=== PATIENT | female | born 1980 | race African-American/Black ===

== ENCOUNTER 2019-01-24 22:12 | Emergency (ER) | payer MEDICAID, OTHER ==
[~2019-01-24] VITALS: Ht 170.2 cm; Wt 98.9 kg
[~2019-01-24 22:12] MED LIST: ADALAT20 MG ORAL; CYCLOBENZAPRINE10 MG ORAL; IBUPROFEN600 MG ORAL
[2019-01-24 22:25] VITALS: BP 156/73
--- NOTE | 2019-01-24 22:25 | NUR ---
ED Nurse Note: Pt walked in to ER due to RT forearm redness, itching, swelling that started this morning and got worse throughout day. Patient denies allergic reaction or any insect bites. Has hx of HTN and is compliant with her medications. Alert and oriented x4, verbally responsive. No SOB. Breathing even and unlabored. Afebrile. VSS. at bedsdie.
--- NOTE | 2019-01-24 22:34 | Emergency Room Report ---
History of Present Illness General Chief Complaint: Skin Rash/Abscess Source: Patient Present Illness HPI Is a 38-year-old female with history of high blood pressure patient presents with chief complaint of a bite and infection to her right arm. She woke up this morning and noticed a small red area. It was itchy. She thought she may been bitten by something. She is been scratching it. Since this morning is been getting worse. Redness is spreading. No fever chills but no nausea no vomiting. No drainage. Allergies: Coded Allergies: No Known Allergies (Unverified , 10/30/15) Patient History Past Medical History: see triage record, old chart reviewed, HTN Past Surgical History: none Pertinent Family History: none Social History: Denies: smoking Last Menstrual Period: IUD Now: No Immunizations: other Reviewed Nursing Documentation: PMH: Agreed; PSxH: Agreed Nursing Documentation-PMH Hx Hypertension: Yes Review of Systems Eye: Denies: eye pain, blurred vision ENT: Denies: ear pain, nose congestion, throat swelling Respiratory: Denies: cough, shortness of breath Cardiovascular: Denies: chest pain, palpitations Gastrointestinal: Denies: abdominal pain, diarrhea, nausea, vomiting Musculoskeletal: Denies: back pain, joint pain Skin: Reports: rash Neurological: Denies: headache, numbness Endocrine: Denies: increased thirst, increased urine Hematologic/Lymphatic: Denies: easy bruising All Other Systems: negative except mentioned in HPI Physical Exam Vital Signs Date Time Temp Pulse Resp B/P (MAP) Pulse Ox O2 Delivery O2 Flow Rate FiO2 01/24/19 22:16 98.4 84 16 156/73 (100) 96 Room Air Vitals with high blood pressure Sp02 EP Interpretation: reviewed, normal General Appearance: well appearing, no apparent distress, alert Head: normocephalic, atraumatic Eyes: bilateral eye PERRL, bilateral eye EOMI ENT: hearing grossly normal, normal pharynx Neck: full range of motion, supple, no meningismus Respiratory: chest non-tender, lungs clear, normal breath sounds Cardiovascular #1: regular rate, rhythm, no murmur Gastrointestinal: normal bowel sounds, non tender, no mass, no organomegaly, no bruit, non-distended Musculoskeletal: back normal, gait/station normal, normal range of motion, other - Right forearm: There is an area of erythema on the proximal forearm near the elbow on the ventral aspect. Measures about 4 cm. No fluctuant. No crepitance. Psychiatric: mood/affect normal Medical Decision Making Diagnostic Impression: Primary Impression: Right forearm cellulitis ER Course Patient with cellulitis of the forearm. No evidence of necrotizing fasciitis or abscess. No septic joint. Will discharge home. Last Vital Signs Date Time Temp Pulse Resp B/P (MAP) Pulse Ox O2 Delivery O2 Flow Rate FiO2 01/24/19 22:16 98.4 84 16 156/73 (100) 96 Room Air Status: unchanged Disposition: HOME, SELF-CARE Condition: Stable Scripts Trimethoprim/Sulfamethoxazole 160/800* (BACTRIM DS TABLET*) 1 Each Tablet 1 TAB ORAL Q12H, #14 TAB 0 Refills Prov: Jax Lara MD 01/24/19 Mupirocin* (MUPIROCIN*) 22 Gm Oint...g. 1 APPLIC TOPIC THREE TIMES A DAY, #22 GM Prov: Jax Lara MD 01/24/19 Additional Instructions: Keep wound clean. Clean first with hydroperoxide and apply antibiotic ointment. Follow-up with your doctor in 7 days. Return if worse. Jax Lara MD Jan 24, 2019 22:34
[2019-01-24] MEDS ORDERED: MUPIROCIN22 GM TOPIC (22:38)
[2019-01-24] MEDS ORDERED: BACTRIM DS TAB1 EAC1 ORAL (22:38)
[2019-01-24 22:43] VITALS: BP 156/73
--- NOTE | 2019-01-24 22:43 | NUR ---
ED Nurse Note: Pt cleared by ERMD for discharge. DC instructions such as seeing pcp or return to ER if any changes in condition and prescription was given and explained to pt and verbalized understanding of teachings. All medical deviecs such as ID band removed. Pt is AAO x4, ambulatory and left with all personal belongings and accompanied by .
[2019-01-24] MEDS ORDERED: Bactrim-DS 1 tab ORAL ONE (22:45)
== END 2019-01-24 22:45 | disposition home or self-care (01) ==
LOC: EMR 22:30
DX: L03.113 Cellulitis of right upper limb (principal); I10 Essential (primary) hypertension
CPT/HCPCS: 99282